=== PATIENT | female | born 1965 | race American Indian/Alaskan Native ===

== ENCOUNTER 2020-12-29 13:37 | Emergency (ER) | payer SELFPAY ==
[2020-12-29 13:43] VITALS: BP 128/78
== END 2020-12-29 15:50 | disposition home or self-care (01) ==
LOC: ED 13:37
DX: G89.29 Other chronic pain (principal); M25.562 Pain in left knee; R56.9 Unspecified convulsions; J45.909 Unspecified asthma, uncomplicated; Z86.73 Personal history of transient ischemic attack (TIA), and cerebral infarction without residual deficits; F17.200 Nicotine dependence, unspecified, uncomplicated; Z98.890 Other specified postprocedural states; Z79.899 Other long term (current) drug therapy